=== PATIENT | male | born 1995 | race Caucasian/White ===

== ENCOUNTER 2017-01-13 17:43 | Inpatient (IN) | payer BC ==
[~2017-01-13] VITALS: Ht 165.1 cm; Wt 62.8 kg
[~2017-01-13 17:43] MED LIST: Z.0.NO CURRENT MEDS
[2017-01-13 18:00] VITALS: BP 109/68; PULSE 68; RESP 20; TEMP 98.4; O2SAT 97
--- NOTE | 2017-01-13 18:29 | PD ---
HPI Chief Complaint: Abdominal Pain Time Seen by Provider: 18:21 Travel History International Travel<30 days: No Contact w/Intl Traveler<30days: No Traveled to known affect area: No History of Present Illness HPI This 21-year-old male says he been feeling dizzy and tired for about 2 weeks. He has noted polyuria. He has not been short of breath. He has no history of diabetes. There is some family history on the mother's side. He has not had weight loss. FOR[facility]LY [facility] Past Medical History Medical History: Denies Significant Hx Asthma: Yes (EXERCISE INDUCED ASTHMA) Cancer: No Diabetes: No Diminished Hearing: No Glaucoma: No Hepatitis: No Hiatal Hernia: No Hypertension: No Medical other: Yes (SINUS CONGESTION) Respiratory: Yes (ENVIRONMENTAL ASTHMA ATTACK IN 2005 X1) Immunizations Current: Yes Thyroid Disease: No Influenza Vaccination: No ?: Not Past Surgical History Surgical History: No Previous Surgery Pacemaker: No Other Surgery: Yes (RIGHT HAND SURGERY A CHILD - WOUND DRAINED - STAPH INFECTION) Social History Alcohol Use: No Tobacco Use: No Substance Use: No Allergies-Medications (Allergen,Severity, Reaction): Coded Allergies: Augmentin (Verified Allergy, Mild, Hives, 01/13/17) Reported Meds & Prescriptions Reported Meds & Active Scripts Active Review of Systems General / Constitutional: No: Fever, Chills Eyes: No: Diploplia, Blurred Vision HENT: Positive: Headaches, No: Vertigo Cardiovascular: No: Chest Pain or Discomfort, Palpitations Respiratory: No: Cough, Shortness of Breath Gastrointestinal: Positive: Nausea Genitourinary: Positive: Frequency Musculoskeletal: Positive: Myalgias Skin: No Rash, No Itching Neurologic: No: Weakness Hematologic/Lymphatic: No: Easy Bruising Physical Exam Narrative GENERAL: Well-developed male SKIN: Focused skin assessment warm/dry. HEAD: Atraumatic. Normocephalic. EYES: Pupils equal and round. No scleral icterus. No injection or drainage. ENT: No nasal bleeding or discharge. Mucous membranes pink and moist. NECK: Trachea midline. No JVD. CARDIOVASCULAR: Regular rate and rhythm. No murmur appreciated. RESPIRATORY: No accessory muscle use. Clear to auscultation. Breath sounds equal bilaterally. GASTROINTESTINAL: Abdomen soft, non-tender, nondistended. Hepatic and splenic margins not palpable. MUSCULOSKELETAL: No obvious deformities. No clubbing. No cyanosis. No edema. NEUROLOGICAL: Awake and alert. No obvious cranial nerve deficits. Motor grossly within normal limits. Normal speech. PSYCHIATRIC: Appropriate mood and affect; insight and judgment normal. Data Data Last Documented VS Vital Signs Date Time Temp Pulse Resp B/P Pulse Ox O2 Delivery O2 Flow Rate FiO2 01/13/17 18:58 86 16 124/64 100 Room Air 01/13/17 18:00 98.4 Orders Complete Blood Count With Diff (01/13/17 18:27) Comprehensive Metabolic Panel (01/13/17 18:27) Magnesium (Mg) (01/13/17 18:27) Beta Hydroxybutyrate (Acetone) (01/13/17 18:27) Sodium Chlor 0.9% 1000 Ml Inj (Ns 1000 M (01/13/17 18:30) Insulin Human Regular Inj (Novolin R Inj (01/13/17 18:30) Sodium Chlor 0.9% 1000 Ml Inj (Ns 1000 M (01/13/17 18:45) Labs Laboratory Tests Test 01/13/17 18:30 White Blood Count 6.1 TH/MM3 Red Blood Count 4.82 MIL/MM3 Hemoglobin 15.0 GM/DL Hematocrit 43.0 % Mean Corpuscular Volume 89.3 FL Mean Corpuscular Hemoglobin 31.2 PG Mean Corpuscular Hemoglobin 34.9 % Concent Red Cell Distribution Width 11.7 % Platelet Count 197 TH/MM3 Mean Platelet Volume 9.1 FL Neutrophils (%) (Auto) 63.2 % Lymphocytes (%) (Auto) 27.4 % Monocytes (%) (Auto) 6.6 % Eosinophils (%) (Auto) 0.7 % Basophils (%) (Auto) 2.1 % Neutrophils # (Auto) 3.9 TH/MM3 Lymphocytes # (Auto) 1.7 TH/MM3 Monocytes # (Auto) 0.4 TH/MM3 Eosinophils # (Auto) 0.0 TH/MM3 Basophils # (Auto) 0.1 TH/MM3 CBC Comment DIFF FINAL Differential Comment Sodium Level 131 MEQ/L Potassium Level 4.3 MEQ/L Chloride Level 95 MEQ/L Carbon Dioxide Level 27.8 MEQ/L Anion Gap 8 MEQ/L Blood Urea Nitrogen 15 MG/DL Creatinine 1.30 MG/DL Estimat Glomerular Filtration 71 ML/MIN Rate Random Glucose 613 MG/DL Calcium Level 8.8 MG/DL Magnesium Level 2.2 MG/DL Total Bilirubin 0.5 MG/DL Aspartate Amino Transf 90 U/L (AST/SGOT) Alanine Aminotransferase 192 U/L (ALT/SGPT) Alkaline Phosphatase 161 U/L Total Protein 6.7 GM/DL Albumin 3.7 GM/DL B-Hydroxybutyrate 0.21 MMOL/L MDM Medical Decision Making Medical Screen Exam Complete: Yes Emergency Medical Condition: Yes Medical Record Reviewed: Yes Differential Diagnosis Differential includes viral syndrome, metabolic abnormalities Narrative Course Blood sugar is markedly elevated at 613. Serum ketones are negative. He has been given IV fluids and a small dose of insulin. This is a new onset of diabetes with hyperglycemia. He will be admitted Diagnosis Primary Impression: Diabetes mellitus, new onset Additional Impression: Hyperglycemia Admitting Information Admitting Physician Requests: Admit Long Blackwood MD Jan 13, 2017 18:29
[2017-01-13] MEDS ORDERED: SODIUM CHLOR 0.9% 1000 ML INJ 1,000 ML IV ONE ×2 (18:30→18:45)
[2017-01-13] MEDS ORDERED: INSULIN HUMAN REGULAR 1,000 UNITS/10 ML VIAL SQ ONE ×2 (18:30→20:00)
[2017-01-13 18:40] LABS: AUTOMATED NEUTROPHIL # 3.9 TH/MM3 (1.8-7.7); BASOPHIL # 0.1 TH/MM3 (0-0.2); BASOPHIL % 2.1 % (0.0-2.0); EOSINOPHIL % 0.7 % (0.0-4.0); HEMO FLAGS DIFF FINAL; LYMPH % 27.4 % (9.0-44.0); LYMPHOCYTE # 1.7 TH/MM3 (1.0-4.8); MEAN CELL VOLUME 89.3 FL (80.0-100.0); MEAN CORPUSCULAR HEMOGLOBIN 31.2 PG (27.0-34.0); MEAN CORPUSCULAR HGB CONC 34.9 % (32.0-36.0); MONO % 6.6 % (0.0-8.0); NEUT % 63.2 % (16.0-70.0); PLATELET COUNT 197 TH/MM3 (150-450); RED BLOOD COUNT 4.82 MIL/MM3 (4.50-5.90); RED CELL DISTRIBUTION WIDTH 11.7 % (11.6-17.2); WHITE BLOOD COUNT 6.1 TH/MM3 (4.0-11.0)
[2017-01-13 18:48] LABS: CHLORIDE 95 MEQ/L (98-107); POTASSIUM 4.3 MEQ/L (3.5-5.1); SODIUM (NA) 131 MEQ/L (136-145)
[2017-01-13 18:52] LABS: ANION GAP 8 MEQ/L (5-15); BICARBONATE 27.8 MEQ/L (21.0-32.0); BLOOD UREA NITROGEN 15 MG/DL (7-18); MAGNESIUM 2.2 MG/DL (1.5-2.5)
[2017-01-13 18:55] LABS: ALT (GPT) 192 U/L (9-52); AST (GOT) 90 U/L (15-39); GLOMERULAR FILTRATION RATE 71 ML/MIN (>89)
[2017-01-13 18:56] LABS: BETA-HYDROXYBUTYRATE 0.21 MMOL/L (0.00-0.39); TOTAL BILIRUBIN ADULT 0.5 MG/DL (0.2-1.0)
[2017-01-13 18:58] VITALS: BP 124/64; PULSE 86; RESP 16; O2SAT 100
[2017-01-13 19:07] LABS: ALKALINE PHOSPHATASE 161 U/L (45-117)
[2017-01-13] MEDS ORDERED: NALOXONE HCL 0.4 MG/ML AMP IV PRN (20:45)
[2017-01-13] MEDS ORDERED: SODIUM CHLORIDE 0.9% FLUSH 10 ML FLUSH IV FLUSH PRN (20:45)
[2017-01-13] MEDS ORDERED: DEXTROSE 50% IN WATER 50 ML VIAL(D50) IV PRN (20:45)
[2017-01-13] MEDS ORDERED: GLUCAGON 1 MG/ML VIAL OTHER PRN (20:45)
[2017-01-13] MEDS ORDERED: ENOXAPARIN SODIUM 30 MG/0.3 ML SYRINGE SQ SCH (20:45)
[2017-01-13] MEDS ORDERED: ONDANSETRON HCL 4 MG/2 ML VIAL IVP PRN (20:45)
[2017-01-13] MEDS: SODIUM CHLOR 0.9% 1000 ML INJ 1,000 ML IV SCH (20:59)
[2017-01-13] MEDS: INSULIN NovoLIN REGULAR SUPPLEMENTAL SCALE SQ SCH (21:00)
[2017-01-13] MEDS ORDERED: INSULIN DETEMIR 100 UNITS/ML VIAL SQ SCH (21:15)
[2017-01-13 21:20] VITALS: BP 127/74; PULSE 87; RESP 16; O2SAT 100
[2017-01-13 23:18] VITALS: BP 152/83; PULSE 94; RESP 18; TEMP 97.9; O2SAT 98
[2017-01-13] MEDS: SODIUM CHLORIDE 0.9% FLUSH 10 ML FLUSH IV FLUSH SCH (23:30)
[2017-01-14 04:00] VITALS: BP 115/65; PULSE 70; RESP 18; TEMP 97.6; O2SAT 97
[2017-01-14] MEDS: SODIUM CHLOR 0.9% 1000 ML INJ 1,000 ML IV SCH (04:48)
[2017-01-14] MEDS: INSULIN NovoLIN REGULAR SUPPLEMENTAL SCALE SQ SCH ×4 (07:00→16:00)
--- NOTE | 2017-01-14 07:02 | MH ---
cc: SABINA GOODWIN DATE OF ADMISSION 01/13/2017 CHIEF COMPLAINT Headache, nausea, weight-loss, choluria. ADMITTING DIAGNOSIS New onset diabetes with hyperglycemia HISTORY OF PRESENT ILLNESS Alis is a 21 year-old male in no acute distress. He notes an approximately two week history of just not feeling right. He has noticed some headache, increased, thirst, urinating more frequently and generally with lack of energy. He normally works at [employer] and has been off for the past few days as he has not been feeling well. He did have an appointment with me as a new patient next Tuesday, but parents brought him to the emergency room since he was feeling so poorly. He is no longer being seen by his corrosion technician. PAST MEDICAL HISTORY Unremarkable PAST SURGICAL HISTORY 1. Hand surgery due to intact as the child. 2. He had a history of a hand fracture from a football injury. 3. Apparently had a right hip avulsion fracture in the past that did not require any surgical intervention. MEDICATIONS None ALLERGIES None SOCIAL HISTORY He lives with is mom and dad and younger brother. No tobacco, minimal alcohol. No illicit drug. No steroid injections. He has played football, but not for the past year since he evaluated from high school. He plans to attend 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 FAMILY HISTORY Mom is healthy. She did have gestational diabetes. Dad is also healthy. Brother without any medical problems. REVIEW OF SYSTEMS He has noted some blurriness to his vision over the past few weeks. No ear aches. No sore throat. No upper respiratory symptoms other than a little bit of sinus congestion. No chest discomfort or shortness of breath. No cough. No fevers, sweats or chills. He has had some abdominal discomfort feeling like his abdomen is just gurgling and upset. No particular foods seems to trigger it. He has had no constipation or diarrhea. He has noted urinary frequency, but no blood in his urine. No pain with urination. He has not noted any lower extremity rashes. No swelling. No changes in sensation. No wounds, overall fatigued. OBJECTIVE He is afebrile. His blood pressures were within normal limits. Respirations are not labored running about 16, heart rate is running in the 80's and regular. GENERAL: In general, he is a well-developed, muscular, dark-skinned male in no acute distress. HEENT: Pupils are equal, reactive to light. Tympanic membrane are within normal limits. Nose, no discharge. Oropharynx is benign with good dentition. NECK: Supple without lymphadenopathy. No thyromegaly, no supraclavicular adenopathy. CARDIOVASCULAR: Regular rate and rhythm without murmurs. LUNGS: Clear to auscultation bilaterally. No wheezes, no rhonchi. ABDOMEN: Shows some hyperactive bowel sounds. No hepatosplenomegaly or masses. He has no tenderness to palpation. EXTREMITIES: His lower extremities show no edema. No skin lesions. He has 2+ pulses. No lesions to the feet. He has a small hyperpigmented area to the right heel, flat nevus. Good muscle tone. No lesions in the arms. LABORATORY DATA Initial blood sugar was in the 600's. He received four units of subcu insulin and an hour and two liters of IV fluids, his sugars have come down into the 400's. He received another four units of insulin just before my arrival and will be checked frequently throughout the evening. BMP showed slight dehydration with a glomerular filtration rate of 70 and a creatinine of 1.3 which is likely higher than his normal. Beta hydroxybutyrate was within normal limits at 0.21. His liver functions were slightly elevated in the 90s with an AST, ALT and mildly elevated alkaline phosphatase. Potassium and bicarbonate were within normal limits. Pending urinalysis. ASSESSMENT AND PLAN New onset diabetes likely type 1. I have ordered a ANNIA 65 and a hemoglobin A1c on him. We will continue with insulin throughout the evening and a regular insulin sliding scale until his blood sugars are less than 250. I have given him 5 units of Levemir this evening and kept him NPO until his blood sugars get around 250. I have not started him on an insulin drip as it appears that we will be at to get this controlled without a drip. We have discussed the implication of diabetes, potential complication with vision, cardiovascular issues and neuropathy. Overall, we will focus on good control, adequate diet and adjustment in his lifestyle activities. I have placed a nutrition consult. We will get him educated on how to do blood sugar checks and how to dose his insulin. Depending upon how his blood sugars do overnight, we will consider discharge tomorrow with continued follow up in my office next week. Mom and dad were present on exam and they are understanding and appropriately tearful, but we have discussed this need to control this and the patient needs to be compliant and willing to do so. MD MADELEINE Ace/LORRAINE /9:19 PM /6:47 AM SONIYA
[2017-01-14 07:18] LABS: ALKALINE PHOSPHATASE 85 U/L (45-117); ALT (GPT) 161 U/L (9-52); ANION GAP 8 MEQ/L (5-15); AST (GOT) 89 U/L (15-39); BICARBONATE 27.6 MEQ/L (21.0-32.0); BLOOD UREA NITROGEN 11 MG/DL (7-18); CHLORIDE 106 MEQ/L (98-107); GLOMERULAR FILTRATION RATE 130 ML/MIN (>89); POTASSIUM 3.3 MEQ/L (3.5-5.1); SODIUM (NA) 142 MEQ/L (136-145); TOTAL BILIRUBIN ADULT 0.4 MG/DL (0.2-1.0)
--- NOTE | 2017-01-14 07:24 | HHI.FPPN ---
Subjective Remarks Feels great this AM. Notes his head doesn't feel wierd, his stomach isn't upset , overall feeling much better. He notes when he got up here from the ED during the night he got shakey, sweaty and nauseated. they reported to the nurse but blood sugar wasn't tested but he was given another healthy choice meal and he improved after eating. His bedside glucose he reported to be 82 about 4am and had peanut butter and crackers and felt okay with that. He had labs drawn this AM but no results yet. Speaking with him on his own, he denies sexual activity , drug use, admits to occasional alcohol use but only 1-2 drinks at a time and not regularly. No other reason for elevated LFTs other than the diabetes. Objective Vitals Vital Signs Date Time Temp Pulse Resp B/P Pulse Ox O2 Delivery O2 Flow Rate FiO2 01/14/17 04:00 97.6 70 18 115/65 97 01/13/17 23:18 97.9 94 18 152/83 98 01/13/17 21:20 87 16 127/74 100 Room Air 01/13/17 18:58 86 16 124/64 100 Room Air 01/13/17 18:00 98.4 68 20 109/68 97 I/O 01/13/17 01/13/17 01/13/17 01/14/17 01/14/17 01/14/17 07:00 15:00 23:00 07:00 15:00 23:00 Intake Total 2300 ml Output Total 1000 ml Balance 2300 ml -1000 ml Intake Oral 300 ml IV Total 2000 ml Output Urine Total 1000 ml # Bowel Movements 0 Result Diagram: 01/13/17182901/13/17 183 Objective Remarks Gen: thin, muscular, dark skinned male, no distress Abd: nontender Skin: no lesions Mentation: wnl, asks appropriate questions Discussed with pt and mom today Urinary Catheter: No Vascular Central Line Catheter: No A/P Problem List: (1) Diabetes mellitus, new onset Status: Acute Plan: Pending hbgA1C and ANNIA 65 testing. Will have hematology nurse educator see him this AM. Continue to monitor sugars QAC at this time. Adjust insulin as needed. I gave him 5 units of levemir last PM and he only had a total of 8 units of regular SQ insulin yesterday AM and sugars came from the 600s down to 80 with likely a hypoglycemic reaction in the middle of the night. I have advised pt I would like him to check blood sugars QAC and QHS for the next week until his appointment in my office on Tuesday/Tuesday. Will likely send him home on just levemir for now and watching diet and consider need for regular insulin depending on his testing results. Pt needs to be educated today on how to do blood glucose testing and insulin injection. Will give info on web sites to get further information. I have advised him to be out of work for the next week until we get this established with a plan as he is out in the sun all day. We briefly discussed diet and activity's effects on blood sugars. Encouraged to ask questions. (2) Elevated liver enzymes Status: Acute Plan: etiology unknown. No risk factors per patient. Likely due to the elevated blood sugars. If still elevated this AM after fluids and sugar reduction, will order hepatitis testing although unlikely if he truely hasn't been sexually active or had any drug use. Shaina aHines MD Jan 14, 2017 07:24
[2017-01-14 08:00] VITALS: BP 121/72; PULSE 59; RESP 16; TEMP 97.5; O2SAT 98
[2017-01-14] MEDS: SODIUM CHLORIDE 0.9% FLUSH 10 ML FLUSH IV FLUSH SCH (08:37)
[2017-01-14 12:00] VITALS: BP 125/73; PULSE 66; RESP 16; TEMP 96.2; O2SAT 99
[2017-01-14 16:00] VITALS: BP 115/64; PULSE 70; RESP 16; TEMP 97; O2SAT 99
[2017-01-14 16:11] LABS: HEMOGLOBIN A1a 1.4 %; HEMOGLOBIN A1b 1.1 %; HEMOGLOBIN Ao 72.7 %; HEMOGLOBIN LA1C 4.9 %
[2017-01-14] MEDS ORDERED: INSU1INJ5 SQ (16:53)
[2017-01-14] MEDS ORDERED: BLOOD GLUCOSE T1 TES (16:59)
[2017-01-14] MEDS ORDERED: ACCUMIS19 (16:59)
[2017-01-14] MEDS ORDERED: APIDINJ2 SQ (16:59)
[2017-01-14] MEDS ORDERED: BAYEKIT (16:59)
[2017-01-14] MEDS ORDERED: POTASSIUM CHLORIDE 20 MEQ CONTROLLED RELEASE TAB PO ONE (17:00)
--- NOTE | 2017-01-14 17:04 | HHI.DS ---
Discharge Summary Admission Date Jan 13, 2017 at 19:27 Admitting Diagnosis NEW ONSET DIABETES, HYPERGLYCEMIA (1) Diabetes mellitus, new onset Diagnosis: Principal Plan: Pending hbgA1C and ANNIA 65 testing. Will have simulation educator see him this AM. Continue to monitor sugars QAC at this time. Adjust insulin as needed. I gave him 5 units of levemir last PM and he only had a total of 8 units of regular SQ insulin yesterday AM and sugars came from the 600s down to 80 with likely a hypoglycemic reaction in the middle of the night. I have advised pt I would like him to check blood sugars QAC and QHS for the next week until his appointment in my office on Tuesday/Tuesday. Will likely send him home on just levemir for now and watching diet and consider need for regular insulin depending on his testing results. Pt needs to be educated today on how to do blood glucose testing and insulin injection. Will give info on web sites to get further information. I have advised him to be out of work for the next week until we get this established with a plan as he is out in the sun all day. We briefly discussed diet and activity's effects on blood sugars. Encouraged to ask questions. As above. He has seen court usher and staff educating on how to check blood sugars. Will send home on levemir and apidra pen until f/u next week and will adjust as needed. Still pending ANNIA 65 and hemoglobin A1C. (2) Elevated liver enzymes Diagnosis: Secondary Plan: etiology unknown. No risk factors per patient. Likely due to the elevated blood sugars. If still elevated this AM after fluids and sugar reduction, will order hepatitis testing although unlikely if he truely hasn't been sexually active or had any drug use. Will check hepatitis panel on labs if possible. Monitor in the next month for recheck and consider u/s liver if not improving. (3) Hypokalemia Diagnosis: Secondary Plan: low at 3.3. Will give a dose of oral potassium prior to discharge. Brief History 21 yo male, fit, thin with new onset diabetes with blood sugars to the 600s and classic symptoms of weight loss, polyuria, fatigue. He improved quickly with a total of 8 units of regular insulin and one 5 unit dose of levemir. He was somewhat low on sugars this AM but increased with PO intake and sugars have been in the mid 200s today. He is being educated on blood sugar testing and insulin injection (will send him home with the pen). CBC/BMP: 01/13/17 1830 01/14/17 0555 Significant Findings Laboratory Tests Test 01/13/17 01/14/17 18:30 05:55 Basophils (%) (Auto) 2.1 % (0.0-2.0) Sodium Level 131 MEQ/L (136-145) Chloride Level 95 MEQ/L (98-107) Estimat Glomerular Filtration 71 ML/MIN (>89) Rate Random Glucose 613 MG/DL 173 MG/DL (74-106) (74-106) Aspartate Amino Transf 90 U/L (15-39) 89 U/L (15-39) (AST/SGOT) Alanine Aminotransferase 192 U/L (9-52) 161 U/L (9-52) (ALT/SGPT) Alkaline Phosphatase 161 U/L (45-117) Acetaminophen Level LESS THAN 2.0 MCG/ML (10.0-30.0) Potassium Level 3.3 MEQ/L (3.5-5.1) Calcium Level 7.7 MG/DL (8.5-10.1) Total Protein 5.2 GM/DL (6.4-8.2) Albumin 3.0 GM/DL (3.4-5.0) PE at Discharge Gen: thin, muscular, dark skinned male, no distress Abd: nontender Skin: no lesions Mentation: wnl, asks appropriate questions Discussed with pt and mom today Pt Condition on Discharge: Good Discharge Disposition: Discharge Home Discharge Instructions DIET: Follow Instructions for: Diabetic Diet Activities you can perform: Regular-No Restrictions Other Activity Instructions: Would hold off work for the next week until we stabilize sugars a bit better Shaina Haines MD Jan 14, 2017 17:04
[2017-01-14] MEDS ORDERED: INSULIN DETEMIR 100 UNITS/ML VIAL SQ SCH (18:00)
== END 2017-01-14 18:57 | disposition home or self-care (01) | DRG 639 ==
LOC: PHED 17:43 → PHEDA 19:27 → PH3B 23:22
PROVIDERS: ADMIT Family Medicine; ATTEND Family Medicine
DX: E11.65 Type 2 diabetes mellitus with hyperglycemia (principal); E87.6 Hypokalemia; J45.990 Exercise induced bronchospasm
CPT/HCPCS: 80053; 80074; 80307; 82010; 82948; 83036; 83519; 83735; 84443; 85025; 96360; 96372; J1815; J7030